=== PATIENT | male | born 1950 | race Caucasian/White ===

== ENCOUNTER 2022-01-03 12:01 | Emergency (ER) | payer MEDICARE, SELFPAY ==
--- NOTE | ~2022-01-03 | US_ITS ---
EXAMINATION: US right upper quadrant EXAM DATE: 01/03/2022 13:43 INDICATION: Epigastric pain. TECHNIQUE: Multiple grayscale and Doppler images of the abdomen right upper quadrant were obtained (b y a technologist who performed the scan) and subsequently reviewed. There is no prior study for kandi nguyen. FINDINGS: The pancreatic head and body are normal in appearance. The pancreatic tail is not visualized. The l iver has normal echogenicity and contour. There are no focal liver lesions identified. There is no evidence of intrahepatic biliary duct dilation. Portal venous flow was seen in the hepatopedal, nor mal direction and has normal Doppler waveform. No right-sided hydronephrosis. Common bile duct measures 4 mm, which is normal. The gallbladder wall is normal in thickness, with ex pected amount of distention. No sonographic evidence of pericholecystic fluid. There is cholelithia sis. Technologist performing exam reports patient did not demonstrate sonographic Vazquez's sign. P priti note that this sign is less reliable in patients who have received pain medication. IMPRESSION: Cholelithiasis Reviewed, dictated and finalized at location A. IMPRESSION: Cholelithiasis
[2022-01-03 12:01] VITALS: BP 163/88; PULSE 90; RESP 16; TEMP 36.3; O2SAT 98
[2022-01-03 12:20] LABS: Basophils Absolute Auto 0.1 K/mm3 (0.0-0.1); Basophils Percent Auto 0.9 % (0.2-1.2); Eosinophils Absolute Auto 0.1 K/mm3 (0-0.3); Eosinophils Percent Auto 1.6 % (0-4.4); Hematocrit 42.6 % (42.0-52.0); Hemoglobin 14.7 g/dL (14.0-18.0); Immature Granulocyte Absolute 0.03 K/mm3 (0.00-0.031); Immature Granulocyte Percent A 0.4 % (0-0.5); Lymphocytes Percent Auto 26.5 % (18.3-44.2); Mean Corpuscular HGB Conc 34.5 g/dl (32-36); Mean Corpuscular Hemoglobin 32.5 pg (26-34); Mean Platelet Volume 9.9 fl (7.4-10.4); Monocytes Absolute Auto 0.7 K/mm3 (0.1-0.6); Neutrophils Absolute Auto 4.9 K/mm3 (1.3-6.7); Neutrophils Percent Auto 61.6 % (45.5-73.1); Platelet Count Result 273 k/mm3 (150-375); Red Blood Count 4.53 M/mm3 (4.6-6.20); White Blood Count 7.9 K/mm3 (4.5-10.0)
[2022-01-03 12:30] LABS: Appearance Urine Clear (Clear); Bilirubin Urine Negative (Negative); Blood Urine Negative (Negative); Color Urine Yellow (Yellow); Glucose Urine UA Negative (Negative); Ketones Urine Negative (Negative); Leukocyte Esterase Ur 1+ LEU/UL (Negative); Nitrate Urine Negative (Negative); Protein Urine Negative (Negative); Specific Grav Ur 1.015 (1.001-1.035); Urobilinogen Urine 0.2 mg/dL (<2.0)
[2022-01-03 12:35] LABS: Alanine Aminotransferase 24 U/L (4-50); Albumin Level 4.4 g/dL (3.5-5.1); Alkaline Phosphatase 72 U/L (38-126); Anion Gap 3 mmol/L (8-16); Aspartate Amino Transferase 35 U/L (17-59); Bilirubin,Total 0.4 mg/dL (0.2-1.3); Blood Urea Nitrogen 10 mg/dL (9-20); Calcium 9.3 mg/dL (8.4-10.2); Carbon Dioxide 31 mmol/L (22-30); Chloride 101 mmol/L (98-107); Estimated CRCL calculation 84 ml/min; Estimated Glomerular Filt Rate > 60; Glucose 178 mg/dL (65-110); Lipase 45 U/L (23-300); Potassium 3.8 mmol/L (3.4-5.0); Sodium 135 mmol/L (137-145)
[2022-01-03 12:46] LABS: Squamous Epithelial Cell Urine Rare /hpf (Few)
[2022-01-03 12:47] LABS: Add Urine Microscopic? YES
[2022-01-03 14:06] LABS: Glucose Point of Care 110 mg/dl (65-105)
--- NOTE | 2022-01-03 14:11 | PC.NURSE ---
pt c/o low BG CHECKED AND RESULT WAS 110 asked for drink, orange juice given.
[2022-01-03 14:43] LABS: Glucose Point of Care 158 mg/dl (65-105)
--- NOTE | 2022-01-03 14:45 | ED.NAVMDI ---
HPI - Nausea/Vomiting/Diarrhea General Chief complaint: Nausea/Vomiting/Diarrhea Stated complaint: vomiting Time Seen by Provider: 01/03/22 12:06 History of Present Illness HPI Narrative: Patient is a 71-year-old male who presents ER with intermittent abdominal pain. Ongoing over the last month but worsening over the last day. Sharp pain in his upper abdomen. No radiation. Associate with some nausea but no vomiting. No fevers or chills or sweats. Reports it occasionally occurs when he is eating spicy food. No reflux symptoms. No diarrhea or constipation. No abdominal bloating. No other concerns. Related Data Allergies Allergy/AdvReac Type Severity Reaction Status Date / Time No Known Allergies Allergy Verified 01/03/22 12:05 Review of Systems Review of Systems: All systems reviewed & are unremarkable except as noted in HPI and below Constitutional: Constitutional: Denies chills, Denies fever(s) and Denies weakness ENT: Denies nasal congestion and Denies sore throat Cardiovascular: Cardiovascular: Denies chest pain, Denies rapid heart rate and Denies radiating jaw, neck or arm pain Respiratory: Respiratory: Denies cough and Denies dyspnea Gastrointestinal: Gastrointestinal: Reports abdominal pain, Denies constipation, Denies diarrhea, Reports nausea and Denies vomiting Musculoskeletal: Musculoskeletal: Denies back pain and Denies muscle cramps PMFSH Past Medical History Medical History (Updated 01/03/22 @ 14:50 by Eldon Valdes MD) Type 2 diabetes mellitus with hyperglycemia, with long-term current use of insulin Surgical History Surgical History (Updated 01/03/22 @ 14:50 by Eldon Valdes MD) No pertinent past surgical history Family History Family History (Updated 04/13/19 @ 13:43 by DOCTOR UNKNOWN) Grandparent Cerebrovascular accident Family history of coronary artery disease Other Diabetes mellitus Family history of blood dyscrasia Family history of malignant neoplasm Family history of malignant neoplasm of ovary Social History Social History Smoking status: Never smoker Alcohol intake: current Exam Narrative: GENERAL: Well-appearing, well-nourished, and in no acute distress. HEAD: Normocephalic, atraumatic. ENT: Mucous membranes moist. CHEST: Clear to auscultation. No respiratory distress. HEART: Regular rate and rhythm. Normal peripheral pulses. ABDOMEN: Soft, mild tenderness in the right upper quadrant without rebound or guarding, nondistended, normal active bowel sounds. EXTREMITIES: Normal range of motion. No edema. SKIN: Warm, dry, no rash. NEURO: Alert and oriented x3. PSYCH: Normal mood and affect. Course Course Emergency Course: Patient informed of results. Discussed low-fat diet and need for follow-up with general surgery. Patient verbalized understanding. Discharge home. Vital Signs Vital signs: Vital Signs Temperature 97.3 F L 01/03/22 12:01 Pulse Rate 90 01/03/22 12:01 Respiratory Rate 16 01/03/22 12:01 Blood Pressure 163/88 H 01/03/22 12:01 Pulse Oximetry 98 01/03/22 12:01 Temperature 97.3 F L 01/03/22 12:01 Pulse Rate 90 01/03/22 12:01 Respiratory Rate 16 01/03/22 12:01 Blood Pressure 163/88 H 01/03/22 12:01 Pulse Oximetry 98 01/03/22 12:01 MDM - Nausea/Vomiting/Diarrhea Lab Data Result diagrams: 01/03/22 12:15 01/03/22 12:15 Labs: Lab Results 01/03/22 01/03/22 01/03/22 Range/Units 12:15 12:15 12:24 WBC 7.9 (4.5-10.0) K/mm3 RBC 4.53 L (4.6-6.20) M/mm3 Hgb 14.7 (14.0-18.0) g/dL Hct 42.6 (42.0-52.0) % MCV 94.0 (80-100) fl MCH 32.5 (26-34) pg MCHC 34.5 (32-36) g/dl RDW 12.0 (11.5-14.5) % Plt Count 273 (150-375) k/mm3 MPV 9.9 (7.4-10.4) fl Immature Gran % (Auto) 0.4 (0-0.5) % Neut % (Auto) 61.6 (45.5-73.1) % Lymph % (Auto) 26.5 (18.3-44.2) % [place] % (Auto) 9.0 H (2.6-8.5) % Eos % (Auto)
[2022-01-03 15:20] VITALS: BP 130/74; PULSE 90; RESP 16; O2SAT 98
== END 2022-01-03 15:25 | disposition home or self-care (01) ==
PROVIDERS: Emergency Provider Emergency Medicine; PCP Family Medicine
DX: K80.20 Calculus of gallbladder without cholecystitis without obstruction (principal); E11.9 Type 2 diabetes mellitus without complications; Z79.4 Long term (current) use of insulin
CPT/HCPCS: 36415; 76705; 80053; 81001; 82948; 83690; 85025; 99284

== ENCOUNTER 2022-04-09 17:22 | Observation (INO) | payer MEDICARE, SELFPAY ==
[2022-04-09] VITALS (15 sets, daily range): BP systolic 104–132; BP diastolic 58–75; PULSE 58–69; RESP 18–20; TEMP 35.9–36.7; O2SAT 95–100; BMI 23.6
[2022-04-09 18:04] LABS: Basophils Absolute Auto 0.1 K/mm3 (0.0-0.1); Basophils Percent Auto 0.8 % (0.2-1.2); Eosinophils Absolute Auto 0.5 K/mm3 (0-0.3); Eosinophils Percent Auto 6.3 % (0-4.4); Hematocrit 41.8 % (42.0-52.0); Hemoglobin 14.3 g/dL (14.0-18.0); Immature Granulocyte Absolute 0.02 K/mm3 (0.00-0.031); Immature Granulocyte Percent A 0.3 % (0-0.5); Lymphocytes Absolute Auto 2.35 K/mm3 (0.9-3.2); Lymphocytes Percent Auto 32.3 % (18.3-44.2); Mean Corpuscular HGB Conc 34.2 g/dl (32-36); Mean Corpuscular Hemoglobin 32.1 pg (26-34); Mean Corpuscular Volume 93.7 fl (80-100); Mean Platelet Volume 10.7 fl (7.4-10.4); Monocytes Absolute Auto 0.5 K/mm3 (0.1-0.6); Monocytes Percent Auto 7.3 % (2.6-8.5); Neutrophils Absolute Auto 3.9 K/mm3 (1.3-6.7); Platelet Count Result 247 k/mm3 (150-375); Red Blood Count 4.46 M/mm3 (4.6-6.20); Red Cell Distribution Width 11.6 % (11.5-14.5); White Blood Count 7.3 K/mm3 (4.5-10.0)
[2022-04-09 18:14] LABS: Alanine Aminotransferase 41 U/L (6-50); Albumin Level 4.2 g/dL (3.5-5.1); Alkaline Phosphatase 80 U/L (38-126); Anion Gap 12 mmol/L (8-16); Aspartate Amino Transferase 49 U/L (17-59); Bilirubin,Total 0.4 mg/dL (0.2-1.3); Blood Urea Nitrogen 23 mg/dL (9-20); Calcium 9.3 mg/dL (8.4-10.2); Carbon Dioxide 26 mmol/L (22-30); Chloride 96 mmol/L (98-107); Estimated CRCL calculation 75 ml/min; Estimated Glomerular Filt Rate > 60; Glucose 407 mg/dL (65-110); Phosphorus 3.9 mg/dL (2.5-4.5); Potassium 4.4 mmol/L (3.4-5.0); Sodium 134 mmol/L (137-145)
[2022-04-09] MEDS: SODIUM CHLORIDE 0.9% IV 1,000 ML 999 ML IV CONT (18:16)
[2022-04-09 18:19] LABS: Beta-Hydroxybutyrate/Acetoacetate 0.16 mmol/L (0.02-0.27)
--- NOTE | 2022-04-09 18:41 | ED.GENADULT ---
HPI - General Adult General Chief complaint: Recheck/Abnormal Lab/Rx Stated complaint: high blood sugar Time Seen by Provider: 04/09/22 17:44 History of Present Illness HPI narrative: 72-year-old male with history of type 1 diabetes and underlying dementia presents to the emergency department for evaluation of hyperglycemia. Daughter has been staying with the patient for the last few days and notices that his blood sugars have been running around 400s. Patient is supposed to take 6 fast acting insulin with every meal and then 20 units of Lantus nightly. Patient has been taking this as directed but is still having elevated blood sugars. Patient did take extra insulin on Friday and his blood sugar was better controlled. Family contacted the primary care physician and he was told to go to the NH. Patient presented here for evaluation. Patient denies any other complaints. Related Data Home Medications Medication Instructions Recorded Confirmed duloxetine 20 mg capsule,delayed 20 mg PO BID 01/10/22 01/16/22 release (Cymbalta) insulin glargine 100 unit/mL (3 10 unit subcut QPM 01/10/22 01/16/22 mL) subcutaneous pen (Lantus Solostar U-100 Insulin) lisinopril 10 mg tablet 10 mg PO DAILY 01/10/22 01/16/22 Allergies Allergy/AdvReac Type Severity Reaction Status Date / Time No Known Allergies Allergy Verified 01/15/22 13:59 Review of Systems Review of Systems: CONSTITUTIONAL: Denies fever, chills, or sweats. EYES: Denies visual changes, redness, or discharge. ENT: Denies rhinorrhea, congestion, sore throat, or otalgia. CARDIOVASCULAR: Denies chest pain, palpitations, or edema. RESPIRATORY: Denies cough or dyspnea. GASTROINTESTINAL: Denies abdominal pain, nausea, vomiting, or diarrhea. GENITOURINARY: Denies dysuria or hematuria. SKIN: Denies rash or itching. MUSCULOSKELETAL: Denies back pain, joint pain, or myalgia. NEUROLOGIC: Denies headache, numbness, or weakness. PSYCHIATRIC: History of dementia [facility] Past Medical History Medical History (Updated 04/09/22 @ 21:07 by Agapito Hernandez MD) Type 1 diabetes mellitus Surgical History Surgical History No pertinent past surgical history Family History Family History Grandparent Cerebrovascular accident Family history of coronary artery disease Mother , age 68 Ovarian cancer Other Diabetes mellitus Family history of blood dyscrasia Family history of malignant neoplasm Family history of malignant neoplasm of ovary Social History Social History Smoking status: Never smoker Alcohol intake: current Exam Narrative: APPEARANCE: Well appearing, no pain, no distress, well-nourished. HEAD: normocephalic, atraumatic. EYES: PERRLA/EOMI, conjunctivae clear. NOSE: Normal no drainage THROAT: Pharynx clear, no exudate. NECK: Supple. No adenopathy, no masses. RESPIRATORY: Airway patent, respirations nonlabored. Clear to auscultation bilaterally, no rales, rhonchi, wheezing. CARDIOVASCULAR: Regular rate and rhythm without murmurs rubs or gallops. ABDOMINAL: Soft, nontender, nondistended, normal bowel sounds MUSCULOSKELETAL: Moves all extremities. Strength/ROM intact, No edema, No calf tenderness. NEURO: Alert. Cranial nerves II through XII intact. Grossly intact SKIN: Warm, dry. Normal Color Course Course Emergency Course: Family stated that they are unable to get an outpatient follow-up until June. I attempted to contact the patient's primary care physician but no page was returned. Discussed the case with our hospitalist and patient will be admitted to help fine-tune his insulin. Patient was treated with an additional 6 units of IV insulin along with 1 L of normal saline. Patient continues to deny any complaints at this time. Vital Signs Vital signs: Vital Signs
[2022-04-09 19:14] LABS: Appearance Urine Clear (Clear); Bilirubin Urine Negative (Negative); Blood Urine Negative (Negative); Color Urine Yellow (Yellow); Glucose Urine UA 2+ mg/dL (Negative); Ketones Urine Negative (Negative); Leukocyte Esterase Ur Negative LEU/UL (Negative); Nitrate Urine Negative (Negative); Protein Urine Negative (Negative); Specific Grav Ur 1.015 (1.001-1.035); Urobilinogen Urine 0.2 mg/dL (<2.0)
[2022-04-09 19:19] LABS: Bacteria Urine Trace /hpf; Mucus Urine Rare /lpf; RBC Urine 0-2 /hpf (0-2)
[2022-04-09 19:20] LABS: Add Urine Microscopic? YES
[2022-04-09 19:41] LABS: Glucose Point of Care 433 mg/dl (65-105)
[2022-04-09] MEDS: INSULIN HUMAN REGULAR (*BKC) 100 UNITS/ML 6 UNITS IV PUSH (19:44)
[2022-04-09 19:50] LABS: Glucose Point of Care 333 mg/dl (65-105)
--- NOTE | 2022-04-09 20:54 | PM.IMHP ---
H&P: HPI History of Present Illness Date/Time: 04/09/22 20:54 Chief Complaint: uncontrolled sugars Narrative: This is a 72-year-old male with past medical history significant for dementia, insulin-dependent diabetes mellitus. Patient was brought to the emergency room by his daughter due to concerns with keeping his blood sugars well controlled daughter gives most of the history as patient has dementia according to daughter her mom in December and she used to take care of his insulin regimen daughter moved in with him for couple of days to monitor his sugars and the readings were in the 300s,400s to the 500s had been receiving 6 units of insulin sliding scale with postprandial and 20 units of Lantus at nighttime patient has been having significant polydipsia polyphagia polyuria, weight loss. Preliminary workup was significant for chemistry panel with a glucose of 400. Patient is been admitted for further evaluation management and treatment. Review of Systems Review of Systems: ROS unobtainable: Yes unobtainable due to medical condition ( DEMENTIA) [facility] Past Medical History Medical History (Updated 04/11/22 @ 02:19 by Erickson Gonzalez MD) Type 1 diabetes mellitus Surgical History Surgical History No pertinent past surgical history Family History Family History Grandparent Cerebrovascular accident Family history of coronary artery disease Mother , age 68 Ovarian cancer Other Diabetes mellitus Family history of blood dyscrasia Family history of malignant neoplasm Family history of malignant neoplasm of ovary Social History Social History Smoking status: Former smoker Tobacco type: cigarettes Additional smoking assessment comments: many years ago Alcohol intake: current Drinks per week: 2 Substance use: never Substance use type: does not use Spiritual care concerns: No Meds Home Medications and Allergies Home Medications Medication Instructions Recorded Confirmed Type duloxetine 20 mg capsule,delayed 20 mg PO DAILY 01/10/22 04/10/22 History release (Cymbalta) insulin glargine 100 unit/mL (3 20 unit subcut QPM 01/10/22 04/09/22 History mL) subcutaneous pen (Lantus Solostar U-100 Insulin) lisinopril 10 mg tablet 10 mg PO DAILY 01/10/22 04/09/22 History donepezil 10 mg tablet 10 mg PO HS 04/09/22 04/09/22 History insulin aspart U-100 100 unit/mL 6 unit subcut TID 04/09/22 04/09/22 History subcutaneous solution (Novolog U-100 Insulin aspart) sennosides 8.6 mg tablet 8.6 mg PO DAILY 04/09/22 04/09/22 History Allergies Allergy/AdvReac Type Severity Reaction Status Date / Time gabapentin Allergy Unknown Verified 04/09/22 22:22 metformin Allergy Unknown Verified 04/09/22 22:22 nortriptyline Allergy Unknown Verified 04/09/22 22:22 pravastatin Allergy Unknown Verified 04/09/22 22:22 pregabalin [From Lyrica CR] Allergy Unknown Verified 04/09/22 22:22 rosuvastatin Allergy Unknown Verified 04/09/22 22:22 simvastatin Allergy Unknown Verified 04/09/22 22:22 zolpidem [From Ambien] AdvReac Unknown Verified 04/09/22 22:22 Vital Signs Vital Signs - 24 hr 04/09/22 17:36 04/09/22 18:00 04/09/22 18:01 Temperature 98.0 F Pulse Rate 58 L Respiratory Rate 18 Blood Pressure 131/75 132/74 Pulse Oximetry 100 98 99 Oxygen Delivery Room Air 04/09/22 18:15 04/09/22 18:16 04/09/22 18:30 Temperature Pulse Rate 69 Respiratory Rate Blood Pressure 114/73 Pulse Oximetry 96 99 95 Oxygen Delivery 04/09/22 18:31 04/09/22 18:46 04/09/22 18:49 Temperature Pulse Rate Respiratory Rate Blood Pressure 127/69 131/58 L Pulse Oximetry 97 99 Oxygen Delivery 04/09/22 19:01 04/09/22 19:02 04/09/22 19:15 Temperature Pulse Rate Respirator
[2022-04-09 21:32] LABS: Glucose Point of Care 165 mg/dl (65-105)
--- NOTE | 2022-04-09 21:57 | PC.NURSE ---
Called healthcare educator and received no answer.
--- NOTE | 2022-04-09 22:05 | ADMGEN ---
This patient, Sathya Garcia, was admitted to Medical Room 241-. Patient/family oriented to hospital policies and general routines including ID bracelet, bed and alarms, visiting hours, pain management, procedures, bathroom and other care routines, personal items, smoking policy, room service/diet, and visiting hours. Information on how to activate the Rapid Response Team has been discussed. Patient/Family are encouraged to report perceived risks to care and to ask questions if they do not understand what they are told or what they should do.
[2022-04-09 22:08] LABS: SARS-CoV-2 RNA PCR Negative
--- NOTE | 2022-04-10 01:23 | PC.NURSE ---
PT EXTREMELY UPSET AND CURSING BECAUSE HE WOKE UP.
[2022-04-10 02:06] LABS: Hemoglobin A1C 10.9 % (<5.7)
[2022-04-10] MEDS: DULoxetine HCL 20 MG CAPSULE.DR PO ×2 (02:20→20:46)
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
--- NOTE | 2022-04-10 03:36 | PC.NURSE ---
CALLED INTO ROOM, STATES MY IV HAS BEEN BLEEDING SINCE YESTERDAY AND NOONE CARES SO I GUESS ILL JUST GO TO BED, IV SITE WITHOUT BLOOD NOTED
[2022-04-10 05:05] VITALS: BP 134/77; PULSE 67; RESP 18; TEMP 36.1; O2SAT 100
--- NOTE | 2022-04-10 07:37 | PM.IMPN ---
Progress Note: A&P Assessment and Plan (1) Uncontrolled type 1 diabetes mellitus with hyperglycemia: Code(s): E10.65 - Type 1 diabetes mellitus with hyperglycemia Status: Acute Assessment and Plan: Insulin Lispro sliding scale, Accu-checks qAc and HS and Hold oral hypoglycemics 6 units of lispro with meals Lantus 25 Units at HS HgbA1c 10.9 (2) Hypertension: Code(s): I10 - Essential (primary) hypertension Status: Acute Assessment and Plan: Stable Subjective Date/time seen: 04/10/22 07:37 Patient appears mildly confused this morning. He may have bouts of intermittent confusion. Patient reports that his significant other 4 months ago and since then he has been unable to manage his own medications. Patient's hemoglobin A1c increase the for glucose came under control. Patient was admitted for management of blood glucose. After a lengthy discussion with the patient the decision for a mini-mental was made for case management to performed. Patient may need placement as he lives at home alone. He does have 3 daughters, no [id number] and place. May be beneficial for patient to have a [id number]. Spoke with case management about these issues. Spoke with family, family is working on POA paper for Patience as primary. Patient's family is also wanting placement for the patient. Possible residential facility, assisted living-will defer this to Case Management. Reported that he must have been noncompliant with medications at home and has missed several doses of his medications which may have contributed to his elevated blood glucose levels. Sterling recently states with the patient since Friday and has been monitoring his blood glucose. They attempted to call his primary care physician and they were not able to get him in sooner. They told him not to adjust his insulin. Patient had blood glucose levels of 400 at home or greater than 500 at when waking up in the morning. Review of Systems Review of Systems: All systems reviewed & are unremarkable except as noted in HPI and below Exam Narrative: General: No acute distress. intermittently confused Mental Status: Awake, alert and oriented to person, place, and disoriented time with clear speech. Skin: Skin in warm, dry and intact without rashes or lesions. Head: Normocephalic and atraumatic. Eyes: Conjunctivae are clear without exudates or hemorrhage. Sclera is non-icteric. EOM are intact, PERRLA. Ears: The external ear and canal are non-tender and without swelling or discharge. Nose: Nasal mucosa is pink and moist. Septum midline. Nares patent bilaterally. Throat: Oral mucosa pink and moist with good dentition. Tongue midline. Neck: The neck supple without adenopathy. Trachea midline. No JVD. Cardiac: S1 and S2 regular rate and rhythm. No murmurs, gallops, or rubs auscultated. Respiratory: Chest wall symmetric, nontender and without deformity or trauma. Respirations even and unlabored. Lung sounds are clear to auscultation in all lobes bilaterally without wheezes, rhonchi, or rales. Abdominal: Abdomen soft, round and non-tender to palpation. Bowel sounds present and normoactive in all 4 quadrants. Spine: Neck and back with grossly normal curvature, no deformity in appearance or signs of trauma. Extremities: Upper and lower extremities atraumatic without tenderness or deformity. Full range of motion and muscle strength 4+/5 to all extremities bilaterally. Neurological: Full and symmetric motor and light touch sensation bilaterally. Cranial nerves II-XII grossly intact. Objective Data Vital Signs Vital Signs: Vital Signs - 24 hr 04/09/22 17:36 04/09/22 18:00 04/09/22 18:01 Temperature 98.0 F Pulse Rate 58 L Respiratory Rate 18 Blood Pressure 131/75 132/74 Pulse Oximetry 100 98 99 Oxygen Delivery Room Air 04/09/22 18:15 04/09/22 18:16 04/09/22 18:30 Temperature Pulse Rate 69 Respiratory Rate Blood
[2022-04-10 08:11] LABS: Glucose Point of Care 356 mg/dl (65-105)
[2022-04-10 08:11] LABS: Glucose Point of Care 381 mg/dl (65-105)
[2022-04-10] MEDS: lisinopriL 10 MG TABLET PO (08:33)
[2022-04-10] MEDS: SENNOSIDES 8.6 MG TABLET PO (08:33)
[2022-04-10] MEDS: INSULIN ASPART (*BKC) 100 UNITS/ML 6 UNITS SUB-Q ×3 (08:34→17:15)
[2022-04-10 10:29] VITALS: O2SAT 98
[2022-04-10 11:24] LABS: Glucose Point of Care 412 mg/dl (65-105)
[2022-04-10] MEDS: INSULIN ASPART (*BKC) 100 UNITS/ML SUB-Q ×2 (12:09→17:15)
[2022-04-10 12:35] VITALS: BMI 23.6
[2022-04-10 14:51] VITALS: BP 124/70; PULSE 92; RESP 16; TEMP 36.6; O2SAT 100
[2022-04-10 16:41] LABS: Glucose Point of Care 307 mg/dl (65-105)
[2022-04-10] MEDS: INSULIN GLARGINE (*BKC) 100 UNITS/ML 25 UNITS SUB-Q (17:16)
[2022-04-10 19:48] VITALS: BP 115/61; PULSE 71; RESP 18; TEMP 36.5; O2SAT 100
[2022-04-10] MEDS: DONEPEZIL HCL 10 MG TABLET PO (20:46)
[2022-04-10] MEDS: MELATONIN 5 MG TABLET PO (20:46)
[2022-04-11 04:47] VITALS: BP 150/85; PULSE 62; RESP 185; TEMP 35.7; O2SAT 100
--- NOTE | 2022-04-11 06:43 | PM.DS ---
DS: Admitting Diagnosis Discharge Date 04/11/2022 Admitting Diagnosis uncontrolled diabetes mellitus type 1 DS: Discharge Diagnosis Discharge Diagnosis (1) Uncontrolled type 1 diabetes mellitus with hyperglycemia: Code(s): E10.65 - Type 1 diabetes mellitus with hyperglycemia Status: Acute Assessment and Plan: RESTART HOME MEDS ACCU-CHEKS AC AND HS PLUG STITCHER CONSULT (2) Hypertension: Code(s): I10 - Essential (primary) hypertension Status: Acute Assessment and Plan: RESTART HOME MEDS CONTINUE TO MONITOR (3) Dementia: Code(s): F03.90 - Unspecified dementia without behavioral disturbance Status: Acute Assessment and Plan: CONTINUE DONEPEZIL CONTINUE DULOXETINE DS: Summary Hospital Course Reason for hospitalization: uncontrolled diabetes mellitus type 1 Hospital Course: patient is a 72-year-old male with a past medical history of dementia, insulin-dependent diabetes mellitus type 1, and possible dementia. Patient was brought to the emergency department by his daughter due to the concerns of elevated blood glucose levels. The daughter previously stated the patient's blood glucose levels was within normal limits however approximately 4 months ago his significant other and she was managing his insulin regimen. S the daughter reported she moved in with him a couple of days ago to monitor his blood sugars and they were in the 3 400s up to 500s and had abundant receiving 6 units of insulin with meals and 20 units of Lantus at night. Patient has had significant polydipsia, polyphagia, polyuria and endorsed weight loss. Patient is a poor historian therefore most of the information was gathered through the electronic health record or from his daughter Patience. Preliminary workup was performed in the emergency department with labs which revealed a WBC of 7.3, hemoglobin 14.3, hematocrit 41.8 platelet 247, sodium 134, potassium 4.4, BUN 23, creatinine 0.8 and a glucose of 407. Normal LFTs and a UA which revealed 2+ glucose. Upon admission Patient was initiated on his home medications with slight increase of his Lantus to 25 units at night, 6 units of insulin with meals as well as sliding scale. Patient's blood glucose level appeared to be down trending. in a discussion with Sterling the daughter about plan of care and possible placement in the near future. Family is looking for placement in [place]. Case Management given multiple referrals. Patient will be discharged today with family member and for the potential of possible placement in the Future Status at Discharge Cognitive/behavioral status at discharge: alert to self Time Spent with Patient Time attestation: Total time spent providing and/or coordinating discharge services: Exam Narrative: General: No acute distress. intermittently confused Mental Status: Awake, alert and oriented to person, place, and disoriented time with clear speech. Skin: Skin in warm, dry and intact without rashes or lesions. Head: Normocephalic and atraumatic. Eyes: Conjunctivae are clear without exudates or hemorrhage. Sclera is non-icteric. EOM are intact, PERRLA. Ears: The external ear and canal are non-tender and without swelling or discharge. Nose: Nasal mucosa is pink and moist. Septum midline. Nares patent bilaterally. Throat: Oral mucosa pink and moist with good dentition. Tongue midline. Neck: The neck supple without adenopathy. Trachea midline. No JVD. Cardiac: S1 and S2 regular rate and rhythm. No murmurs, gallops, or rubs auscultated. Respiratory: Chest wall symmetric, nontender and without deformity or trauma. Respirations even and unlabored. Lung sounds are clear to auscultation in all lobes bilaterally without wheezes, rhonchi, or rales. Abdominal: Abdomen soft, round and non-tender to palpation. Bowel sounds present and normoactive in all 4 quadrants. Spine: Neck and back with grossly normal c
[2022-04-11 07:58] LABS: Glucose Point of Care 202 mg/dl (65-105)
[2022-04-11 08:15] VITALS: BP 152/74; PULSE 75; RESP 20; TEMP 36.3; O2SAT 100
[2022-04-11] MEDS: lisinopriL 10 MG TABLET PO (08:41)
[2022-04-11] MEDS: INSULIN ASPART (*BKC) 100 UNITS/ML SUB-Q ×2 (08:41→12:21)
[2022-04-11] MEDS: SENNOSIDES 8.6 MG TABLET PO (08:41)
[2022-04-11] MEDS: INSULIN ASPART (*BKC) 100 UNITS/ML 6 UNITS SUB-Q ×3 (08:42→17:15)
[2022-04-11 12:12] LABS: Glucose Point of Care 215 mg/dl (65-105)
[2022-04-11 14:07] VITALS: BP 138/91; PULSE 106; RESP 20; TEMP 35.6; O2SAT 100
[2022-04-11 16:44] LABS: Glucose Point of Care 110 mg/dl (65-105)
[2022-04-11] MEDS: INSULIN GLARGINE (*BKC) 100 UNITS/ML 25 UNITS SUB-Q (17:16)
[2022-04-11 17:18] VITALS: O2SAT 98
== END 2022-04-11 19:02 | disposition home or self-care (01) ==
LOC: ANHED 21:07 → ANH2MED 21:58
PROVIDERS: Admitting Provider Internal Medicine; Emergency Provider Emergency Medicine; Visit Provider Nurse Practitioner Family
DX: E10.65 Type 1 diabetes mellitus with hyperglycemia (principal); I10 Essential (primary) hypertension; F03.90 Unspecified dementia, unspecified severity, without behavioral disturbance, psychotic disturbance, mood disturbance, and anxiety; R63.2 Polyphagia; Z68.23 Body mass index [BMI] 23.0-23.9, adult; Z20.822 Contact with and (suspected) exposure to COVID-19; Z87.891 Personal history of nicotine dependence; Z83.3 Family history of diabetes mellitus; Z72.89 Other problems related to lifestyle; Z79.4 Long term (current) use of insulin; Z79.899 Other long term (current) drug therapy
CPT/HCPCS: 36415; 80053; 81001; 82010; 82948; 83036; 83735; 84100; 85025; 96361; 96374; 99285; A9270; C9803; G0378; J1815; J7030; U0003; U0005